=== PATIENT | male | born 1975 | race Two or more races ===

== ENCOUNTER 2018-07-24 22:18 | Emergency (ER) | payer MEDICAID ==
[~2018-07-24] VITALS: Ht 175.3 cm; Wt 82.1 kg
[2018-07-24 22:26] VITALS: BP 126/84
== END 2018-07-25 01:10 | disposition home or self-care (01) ==
LOC: ED 07-25 01:04
DX: R05 Cough (principal); E11.9 Type 2 diabetes mellitus without complications; B19.20 Unspecified viral hepatitis C without hepatic coma
CPT/HCPCS: 71046; 99284

== ENCOUNTER 2018-08-10 04:08 | Emergency (ER) | payer MEDICAID ==
[~2018-08-10] VITALS: Ht 175.3 cm; Wt 85.0 kg
[2018-08-10 05:22] VITALS: BP 123/78
== END 2018-08-10 05:24 | disposition home or self-care (01) ==
LOC: EDBD 04:08 → MERGE 05:18 → ED 05:18
DX: B85.3 Phthiriasis (principal)
CPT/HCPCS: 99283

== ENCOUNTER 2018-08-21 23:48 | Emergency (ER) | payer MEDICAID ==
[~2018-08-21] VITALS: Ht 175.3 cm; Wt 80.7 kg
[2018-08-21 23:50] VITALS: BP 149/92
== END 2018-08-22 00:19 | disposition home or self-care (01) ==
LOC: ED 08-22 00:13
DX: L20.9 Atopic dermatitis, unspecified (principal); E11.9 Type 2 diabetes mellitus without complications; B19.20 Unspecified viral hepatitis C without hepatic coma
CPT/HCPCS: 99281

== ENCOUNTER 2019-03-29 00:13 | Emergency (ER) | payer MEDICAID ==
[~2019-03-29] VITALS: Ht 175.3 cm; Wt 69.7 kg
[2019-03-29] MEDS ORDERED: hydrOXyzine 50MG TABLET PO ONE (01:00)
[2019-03-29] MEDS ORDERED: hydrOXyzine 50MG TABLET ONE (01:08)
--- NOTE | 2019-03-29 01:13 | NUR ---
patient medicated. awaiting discharge papers.
--- NOTE | 2019-03-29 01:44 | NUR ---
patient discharged with prescription and instruction. verbalized understanding.
[2019-03-29 01:45] VITALS: BP 121/76
== END 2019-03-29 01:47 | disposition home or self-care (01) ==
LOC: ED 01:32
DX: F41.1 Generalized anxiety disorder (principal); E11.9 Type 2 diabetes mellitus without complications; Z86.19 Personal history of other infectious and parasitic diseases; Z72.9 Problem related to lifestyle, unspecified
CPT/HCPCS: 99284

== ENCOUNTER 2019-04-04 01:03 | Emergency (ER) | payer MEDICAID ==
[~2019-04-04] VITALS: Ht 175.3 cm; Wt 67.0 kg
[2019-04-04 01:12] VITALS: BP 121/74
== END 2019-04-04 01:18 | disposition home or self-care (01) ==
LOC: ED 01:03
DX: F41.1 Generalized anxiety disorder (principal); Z76.0 Encounter for issue of repeat prescription; E11.9 Type 2 diabetes mellitus without complications; Z86.19 Personal history of other infectious and parasitic diseases
CPT/HCPCS: 99283

== ENCOUNTER 2019-05-07 20:11 | Emergency (ER) | payer MEDICAID ==
[~2019-05-07] VITALS: Ht 177.8 cm; Wt 67.9 kg
--- NOTE | 2019-05-07 20:17 | NUR ---
NA X 1 IN TRIAGE.
[2019-05-07] MEDS ORDERED: IBUPROFEN 800 MG TABLET PO STA (21:05)
[2019-05-07] MEDS ORDERED: IBUPROFEN 200 MG TABLET ONE (21:11)
[2019-05-07] MEDS ORDERED: NEOSPORIN OINT. PKT 1 PACKET ONE (21:15)
--- NOTE | 2019-05-07 21:22 | NUR ---
TASK RN: DC EDUCATION PROVIDED, PT DEMONSTRATES UNDERSTANDING. PT AMBULATED STEADILY TO DC WITH RN.
== END 2019-05-07 21:24 | disposition home or self-care (01) ==
LOC: ED 20:45
DX: S61.231A Puncture wound without foreign body of left index finger without damage to nail, initial encounter (principal); E11.9 Type 2 diabetes mellitus without complications; F41.1 Generalized anxiety disorder; F15.20 Other stimulant dependence, uncomplicated; Z86.19 Personal history of other infectious and parasitic diseases; F17.210 Nicotine dependence, cigarettes, uncomplicated; W46.0XXA Contact with hypodermic needle, initial encounter; Y93.89 Activity, other specified; Y92.89 Other specified places as the place of occurrence of the external cause; Y99.8 Other external cause status
CPT/HCPCS: 99283

== ENCOUNTER 2019-06-05 16:02 | Emergency (ER) | payer MEDICAID ==
[~2019-06-05] VITALS: Ht 175.3 cm; Wt 66.3 kg
[2019-06-05 16:07] VITALS: BP 104/73
== END 2019-06-05 17:46 | disposition home or self-care (01) ==
LOC: ED 17:15
DX: L03.115 Cellulitis of right lower limb (principal); L04.3 Acute lymphadenitis of lower limb; E11.9 Type 2 diabetes mellitus without complications; Z86.19 Personal history of other infectious and parasitic diseases
CPT/HCPCS: 99283

== ENCOUNTER 2020-05-06 01:30 | Emergency (ER) | payer MEDICARE, MEDICAID ==
[~2020-05-06] VITALS: Ht 177.8 cm; Wt 70.6 kg
--- NOTE | 2020-05-06 01:39 | NUR ---
PT ARRIVES AMBULATORY WITH STEADY GAIT TO ROOM WITH AUTOMOTIVE SERVICE DIRECTOR.
[2020-05-06] MEDS ORDERED: IBUPROFEN 600 MG TABLET PO ONE (02:30)
[2020-05-06] MEDS ORDERED: IBUPROFEN 600 MG TABLET ONE (02:35)
[2020-05-06 03:02] VITALS: BP 148/88
== END 2020-05-06 04:35 | disposition home or self-care (01) ==
LOC: ED 04:00
DX: S40.012A Contusion of left shoulder, initial encounter (principal); S09.90XA Unspecified injury of head, initial encounter; F15.10 Other stimulant abuse, uncomplicated; F17.210 Nicotine dependence, cigarettes, uncomplicated; R00.0 Tachycardia, unspecified; Z72.9 Problem related to lifestyle, unspecified; E11.9 Type 2 diabetes mellitus without complications; W01.0XXA Fall on same level from slipping, tripping and stumbling without subsequent striking against object, initial encounter; Y93.89 Activity, other specified; Y92.410 Unspecified street and highway as the place of occurrence of the external cause; Y99.8 Other external cause status
CPT/HCPCS: 70450; 99284; 99406

== ENCOUNTER 2020-05-12 14:01 | Emergency (ER) | payer MEDICARE, MEDICAID ==
[~2020-05-12] VITALS: Ht 175.3 cm; Wt 72.9 kg
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
[2020-05-12 14:32] VITALS: BP 135/85
--- NOTE | 2020-05-12 14:57 | NUR ---
Patient given discharge instructions and they have confirmed that they understand the instructions. Patient ambulatory with steady gait.
== END 2020-05-12 14:58 | disposition home or self-care (01) ==
LOC: ED 14:45
DX: F15.20 Other stimulant dependence, uncomplicated (principal); F24 Shared psychotic disorder; F22 Delusional disorders
CPT/HCPCS: 99281

== ENCOUNTER 2020-05-27 20:37 | Emergency (ER) | payer MEDICARE, MEDICAID ==
[~2020-05-27] VITALS: Ht 177.8 cm; Wt 73.3 kg
[2020-05-27 20:47] VITALS: BP 157/94
--- NOTE | 2020-05-27 22:06 | NUR ---
D/C PAPERWORK GIVEN TO PT WITHVERBAL UNDERSTANDING. PATIENT STEADILY AMBULATED OUTOF ER
== END 2020-05-27 22:08 | disposition home or self-care (01) ==
LOC: ED 22:00
DX: L20.9 Atopic dermatitis, unspecified (principal); L88 Pyoderma gangrenosum; Z72.9 Problem related to lifestyle, unspecified; E11.9 Type 2 diabetes mellitus without complications; F17.210 Nicotine dependence, cigarettes, uncomplicated
CPT/HCPCS: 99283; 99406